=== PATIENT | female | born 1975 | race Caucasian/White ===

== ENCOUNTER 2016-11-03 22:06 | Inpatient (IN) | payer MEDICAID, OTHER ==
[~2016-11-03] VITALS: Ht 162.6 cm; Wt 59.1 kg
[2016-11-03] MEDS ORDERED: SOD CHLORIDE 0.9% 1,000 ML IV STA (22:16)
[2016-11-03 22:54] LABS: BASOPHIL # 0.1 10^3/ul (0.0-0.1); BASOPHILS % 0.4 % (0.0-2.0); EOSINOPHILS # 0.6 10^3/ul (0.0-0.5); EOSINOPHILS % 4.7 % (0.0-7.0); HEMOGLOBIN 11.8 g/dl (12.0-16.0); LYMPHOCYTES # 2.6 10^3/ul (0.8-2.9); LYMPHOCYTES % 21.6 % (15.0-51.0); MEAN CORPUSCULAR HEMOGLOBIN 28.7 pg (29.0-33.0); MEAN CORPUSCULAR HGB CONC 33.6 g/dl (32.0-37.0); MEAN CORPUSCULAR VOLUME 85.3 fl (82.0-101.0); MEAN PLATELET VOLUME 9.3 fl (7.4-10.4); MONOCYTE # 0.7 10^3/ul (0.3-0.9); MONOCYTES % 5.6 % (0.0-11.0); NEUTROPHIL # 8.2 10^3/ul (1.6-7.5); NEUTROPHILS % 67.7 % (39.0-77.0); PLATELET COUNT 240 10^3/UL (140-440); RED CELL DISTRIBUTION WIDTH 13.7 % (11.5-14.5); UNCORRECTED WBC 12.2 10^3/ul (4.8-10.8); WHITE BLOOD COUNT 12.2 10^3/ul (4.8-10.8)
[2016-11-03 22:56] LABS: CONDITION 1
[2016-11-03] MEDS ORDERED: PRENAT PO (23:11)
--- NOTE | 2016-11-03 23:55 | RADRPT ---
PROCEDURE: Obstetrical ultrasound. CLINICAL INDICATION: Vaginal bleeding. TECHNIQUE: Multiple sonographic images of the pelvis were obtained utilizing a transabdominal and endovaginal technique. The images were reviewed on a PACS workstation. COMPARISON: None. FINDINGS: The uterus is visualized and measures 9.8 x 5.9 x 6.2 cm. No abnormal uterine mass is identified. T he endometrial echo complex is thickened and heterogeneous measuring 2.4 cm with abnormal echogenici ties suggestive of retained products. Blood clot is also seen within the endocervical canal. No in trauterine is identified. There is no evidence for free fluid. Bilateral ovaries are not visualized. No adnexal masses are i dentified. IMPRESSION: Thickened and heterogeneous endometrium with abnormal echogenicities suggestive of retained products . Blood clot is also seen within the endocervical canal. No intrauterine identified. Bilateral ovaries not visualized. .Neal De Guzman MD, Date Time Electronically viewed and signed by .Neal De Guzman MD, MD on 11/03/2016 23:55 .T/
[2016-11-04] VITALS (10 sets, daily range): BP systolic 96–116; BP diastolic 46–59; PULSE 82–95; RESP 14–20; Ht 162.6 cm; Wt 59.1 kg
--- NOTE | 2016-11-04 02:15 | ERA ---
ER Documentation Chief Complaint Date/Time DATE: 11/04/16 TIME: 02:15 Chief Complaint HEAVY VAG BLEED, HAD A MISCARRIAGE SINCE YESTERDAY 8 WEEKS HPI This is a 41-year-old female comes in with heavy vaginal bleeding. Patient had a miscarriage yesterday and she is 8 weeks . She complained of vaginal bleeding today along with abdominal cramping. ROS All systems reviewed and are negative except as per history of present illness. Medications Home Meds Reported Medications Multivit/Min/Fol Ac/Iron/Pren* ( S*) 1 Tab Tab, 1 TAB PO DAILY, TAB 11/03/16 Allergies Allergies: Coded Allergies: No Known Allergy (Unverified , 11/03/16) PMhx/Soc Medical and Surgical Hx: pt denies Medical Hx, pt denies Surgical Hx Hx Alcohol Use: No Hx Substance Use: No Hx Tobacco Use: No Smoking Status: Never smoker Physical Exam Vitals Vital Signs Date Time Temp Pulse Resp B/P Pulse Ox O2 Delivery O2 Flow Rate FiO2 11/04/16 01:00 89 19 91/57 100 Room Air 11/03/16 22:15 97.7 90 20 110/56 99 Physical Exam Const: [] Head: Atraumatic Eyes: Normal Conjunctiva ENT: Normal External Ears, Nose and Mouth. Neck: Full range of motion..~ No meningismus. Resp: Clear to auscultation bilaterally Cardio: Regular rate and rhythm, no murmurs Abd: Soft, non tender, non distended. Normal bowel sounds Skin: No petechiae or rashes Back: No midline or flank tenderness Ext: No cyanosis, or edema Neur: Awake and alert Psych: Normal Mood and Affect Result Diagram: 11/03/162234 Results 24 hrs Laboratory Tests Test 11/03/16 22:35 Basophils # 0.110^3/ul Basophils % 0.4% Beta HCG, Quantitative 2594.7mIU/ml Blood Morphology Comment Eosinophils # 0.610^3/ul Eosinophils % 4.7% Hematocrit 35.0% Hemoglobin 11.8g/dl Lymphocytes # 2.610^3/ul Lymphocytes % 21.6% Mean Corpuscular Hemoglobin 28.7pg Mean Corpuscular Hemoglobin Concent 33.6g/dl Mean Corpuscular Volume 85.3fl Mean Platelet Volume 9.3fl Monocytes # 0.710^3/ul Monocytes % 5.6% Neutrophils # 8.210^3/ul Neutrophils % 67.7% Nucleated Red Blood Cells # 0.010^3/ul Nucleated Red Blood Cells % 0.0/100WBC Platelet Count 97769^3/UL Red Blood Count 4.1010^6/ul Red Cell Distribution Width 13.7% White Blood Count 12.210^3/ul Current Medications Medications (Trade) Dose Ordered Sig/Pee Route PRN Reason Start Time Stop Time Status Last Admin Dose Admin Sodium Chloride (NS) 1,000 ml @ 1,000 mls/hr Q1H STAT IV 11/03/16 22:16 11/03/16 23:15 DC 11/03/16 22:36 Procedures/MDM Medical decision-makin-year-old female retained products of conception. Labors on-call was called and came and evaluated the patient in the ER. Patient will be taken to the OR for D&C. Departure Diagnosis: Primary Impression: Retained products of conception Condition: Stable NOMI WILEY Nov 04, 2016 02:15
[2016-11-04] MEDS ORDERED: LABETALOL HCL 20MG INJ IV PRN (03:30)
[2016-11-04] MEDS ORDERED: MIDAZOLAM 1 MG/ML 2 ML INJ IV PRN (03:30)
[2016-11-04] MEDS ORDERED: ONDANSETRON 4 MG INJ IV PRN ×2 (03:30→04:30)
[2016-11-04] MEDS ORDERED: HYDROmorphONE (0.2 MG/ML) 10ML SYG IV PRN ×3 (03:30)
[2016-11-04] MEDS ORDERED: hydrALAzine 20 MG INJ IV PRN (03:30)
[2016-11-04] MEDS ORDERED: EPHEDrine SULFATE 50 MG/5 ML SYG IV PRN (03:30)
[2016-11-04] MEDS ORDERED: FENTAnyl 50 MCG/ML VIAL IV PRN ×3 (03:30)
[2016-11-04] MEDS ORDERED: MEPERIDINE 25 MG INJ IV PRN (03:30)
[2016-11-04] MEDS ORDERED: PROPOFOL 20 ML ONE (03:45)
[2016-11-04] MEDS ORDERED: FENTAnyl 50 MCG/ML VIAL ONE (03:46)
[2016-11-04] MEDS ORDERED: LIDOCAINE 2% (SDV) 5 ML INJ ONE (03:46)
[2016-11-04] MEDS ORDERED: CEFAZOLIN 1 GM INJ ONE (03:57)
[2016-11-04] MEDS ORDERED: DEXAMETHASONE 4 MG/ML 1 ML INJ ONE (03:59)
[2016-11-04] MEDS ORDERED: KETOROLAC 30 MG INJ ONE (04:01)
[2016-11-04] MEDS ORDERED: ONDANSETRON 4 MG INJ ONE (04:02)
[2016-11-04] MEDS ORDERED: METHYLERGONOVINE 0.2 MG INJ ONE (04:03)
[2016-11-04] MEDS ORDERED: IBUPROFEN 600 MG TAB PO PRN (04:30)
--- NOTE | 2016-11-04 05:47 | CONS ---
DATE OF ADMISSION: 11/04/2016 DATE OF CONSULTATION: 11/04/[address] Lees, Thank you very much for allowing me to participate in the care of your patient, Ms Taryn Lainez. CHIEF COMPLAINT: Heavy vaginal bleeding. HISTORY OF PRESENT ILLNESS: Taryn Lainez is a 41-year-old 2, para 1-0-0- 1 with single intrauterine at 8 weeks by LMP complaining of vaginal bleeding since 2 days ago which gradually got worse. She denies nausea, vomiting, shortness of breath, chest pain, headache, or blurry vision. PAST MEDICAL HISTORY: Negative. PAST SURGICAL HISTORY: None. OBSTETRIC HISTORY: Gravid 2, para 1-0-0-1 with previous vaginal delivery. FAMILY HISTORY: Negative. She denies breast, uterine, ovarian, or colon cancer in her family. SOCIAL HISTORY: She is single, living with father of baby. He is father of first child too. She denies tobacco, alcohol, or drug use. ALLERGIES: NO KNOWN DRUG ALLERGIES. MEDICATIONS: vitamins. PHYSICAL EXAMINATION: VITAL SIGNS: Blood pressure 110/68, pulse rate 80/minute, respiratory rate 18/ minute, O2 saturation 98%, temperature 98.9. GENERAL: Comfortable. No acute distress. Appropriate mood and affect. HEART: Regular rhythm and rate. No murmur. LUNGS: Clear to auscultation bilaterally. ABDOMEN: Soft, nontender. FLANK: No CVA tenderness bilaterally. EXTREMITIES: No edema. Varicose veins thigh with calf tenderness bilaterally. PELVIC: External genitalia: Normal. There is blood all over external genitalia. Vagina: There is moderate to severe vaginal bleeding. Cervix: Open , and some of the tissue is seen on cervical os. Not able to take the tissue by ring forceps. Uterus: 8 weeks, mobile, nontender. Adnexa: No palpable mass bilaterally. IMAGING DATA: Ultrasound performed which revealed retained products of conception. LABORATORY DATA: CBC and blood type and screen performed. ASSESSMENT AND PLAN: A 41-year-old 2, para 1-0-0-1 with incomplete . Physical examination, labs, and ultrasound discussed in detail with patient and father of baby. Both expressed understanding. The management with risks, benefits, and alternatives discussed with the patient and the father of baby. They expressed understanding. Management including but not limited to the medical treatment with Cytotec take and suction curettage discussed. They would like to do surgery. Risks including but not limited to bleeding, infection, injury to other organs if uterine perforation happens discussed with patient. She will transfer to operating room for suction curettage. Dictated By: EUSEBIO MAR/LILIANA Conf#: [id number] DID#: [id number] MTDD
[2016-11-04 10:47] LABS: HEMOGLOBIN 9.1 g/dl (12.0-16.0); LYMPHOCYTES # 0.7 10^3/ul (0.8-2.9); LYMPHOCYTES % 6.8 % (15.0-51.0); MEAN CORPUSCULAR HEMOGLOBIN 28.6 pg (29.0-33.0); MEAN CORPUSCULAR HGB CONC 33.5 g/dl (32.0-37.0); MEAN CORPUSCULAR VOLUME 85.3 fl (82.0-101.0); MEAN PLATELET VOLUME 9.5 fl (7.4-10.4); MONOCYTES % 0.3 % (0.0-11.0); NEUTROPHIL # 9.8 10^3/ul (1.6-7.5); NEUTROPHILS % 92.9 % (39.0-77.0); PLATELET COUNT 191 10^3/UL (140-440); RED BLOOD COUNT 3.17 10^6/ul (4.20-5.40); RED CELL DISTRIBUTION WIDTH 13.8 % (11.5-14.5); UNCORRECTED WBC 10.6 10^3/ul (4.8-10.8); WHITE BLOOD COUNT 10.6 10^3/ul (4.8-10.8)
[2016-11-04 10:49] LABS: CONDITION 1; LH ANALYZER COMMENTS 1
--- NOTE | 2016-11-11 07:16 | OPR ---
DATE OF OPERATION: 11/04/2016 SURGEON: Juanito Bronson MD CALL PERSON: None. ANESTHESIA: General endotracheal anesthesia. PREOPERATIVE DIAGNOSIS: Incomplete . POSTOPERATIVE DIAGNOSIS: Per pathology. PROCEDURE PERFORMED: Dilation and suction curettage. COMPLICATIONS: None. CONDITION: Stable. SPECIMEN: Products of conception. BLOOD LOSS: 100 mL. URINE OUTPUT: 150 mL, clear. INDICATION: A 41-year-old 2, para 1-0-0-1 with a single intrauterine at 8 weeks b y LMP with vaginal bleeding, clot passing, and so just put it with incomplete . Treatment o ptions including expectant management, medical treatment with Cytotec and dilation and suction curet tage discussed with the patient and her partner. Both expressed understanding. The patient would l megan to have dilation and suction curettage. Risk of surgery including, but not limited to, bleeding , infection, uterine rupture, injury to other organ if uterine perforation occurs including bowel an d bladder injury, blood transfusion, blood transfusion related infection, risk of anesthesia, risk o f scar formation discussed in detail with the patient and her partner. Both expressed understanding and would like to proceed with procedure. FINDINGS: Examination under anesthesia: External genitalia within normal limits. Vagina: Moderat e bleeding with passing some tissue. Cervix: Fingertip open. Uterus 8 weeks. Adnexa: No palpabl e mass bilaterally. PROCEDURE IN DETAIL: The patient was identified and the procedure verified. She was given general anesthesia without difficulty and placed in modified dorsal lithotomy position. DESCRIPTION OF PROCEDURE: The patient was examined under general anesthesia with the above findings . The patient was then prepped and draped in normal sterile fashion. The bladder was drained by in sertion of straight catheter. Then, weighted speculum was used to visualize the cervix which was gr asped on the anterior lip with a single tooth tenaculum. The endocervix dilated to a #10, a 10 suct ion curette was introduced into the uterine cavity. Suction curettage was performed in 360 degree f ashion until no further tissue was obtained. There was approximately 100 mL of bleeding. Then a sh anirudh curette was gently introduced into uterine cavity until gritty texture was felt in all 4 quadran ts. The suction curettage was introduced again to remove the remaining clot and debris. No further tissue was obtained. There was about 100 grams of tissue which was sent to pathology. Tenaculum a nd speculum were removed. There no bleeding from the tenaculum site. The patient tolerated the pro cedure well. She extubated in the operating room and transferred to the recovery room in stable con dition. Dictated By: JUANITO MAR/LILIANA Conf#: [id number] DID#: [id number]
== END 2016-11-04 15:40 | disposition home or self-care (01) | DRG 770 ==
LOC: E/R 22:06 → SUR 11-04 03:16 → SDS 11-04 03:16 → SUR 11-04 05:10 → MS2 11-04 05:11
PROVIDERS: ADMIT Obstetrics & Gynecology; ATTEND Obstetrics & Gynecology
PROC: 10D17ZZ Extraction of Products of Conception, Retained, Via Natural or Artificial Opening (ICD-10-PCS; principal; 2016-11-04 03:30)
DX: O03.4 Incomplete spontaneous abortion without complication (principal)
CPT/HCPCS: 36415; 76801; 76817; 84702; 85025; 86900; 86901; 88305; J0690; J1100; J1885; J2210; J2405; J3010; J7030

== ENCOUNTER 2018-03-24 09:00 | Inpatient (IN) | END 2018-03-27 16:00 | disposition home or self-care (01) | DRG 766 ==

== ENCOUNTER 2019-02-21 10:00 | Emergency (ER) | payer OTHER ==
[~2019-02-21] VITALS: Ht 157.5 cm; Wt 65.1 kg
[~2019-02-21 10:00] MED LIST: PRENAT PO
[2019-02-21 10:07] VITALS: BP 117/63; PULSE 82; RESP 18; Ht 157.5 cm; Wt 65.1 kg
[2019-02-21] MEDS ORDERED: ONDANSETRON 4 MG INJ IV STA (12:01)
[2019-02-21] MEDS ORDERED: HYDROmorphONE 1 MG/ML SYG IV STA (12:01)
[2019-02-21] MEDS ORDERED: ACET-141 PO (14:15)
--- NOTE | 2019-02-21 15:36 | ERD ---
ER Documentation Chief Complaint Chief Complaint UPPER ABDOMINAL PAIN AND VOMITING THIS MORNING HPI This is a 43-year-old female complains of right upper quadrant pain described as crampy with radiation to the right back. Is also some right shoulder blade pain. She has nausea vomiting today no shortness of breath or chest pain. No history of gallstones or history of gastritis. Pain was onset this morning and is constant and moderate in nature. No diarrhea no blood in her vomit ROS All systems reviewed and are negative except as per history of present illness. Medications Home Meds Active Scripts Hydrocodone/Acetaminophen (Bledsoe 10-325 Tablet) 1 Each Tablet, 1 TAB PO Q6H PRN for PAIN, #20 TAB Prov:LUBA BORJASTBEVERLEYS Rosalia. DO 02/21/19 Ondansetron (Ondansetron Odt) 4 Mg Tab.rapdis, 4 MG PO Q6H PRN for NAUSEA AND/OR VOMITING, #10 TAB Prov:CORBIN BORJAS A. DO 02/21/19 Dicyclomine HCl (Dicyclomine HCl) 10 Mg Capsule, 20 MG PO TID PRN for ABDOMINAL CRAMPING, #20 CAP Prov:LEKKOS,APOSTOLOS A. DO 02/21/19 Reported Medications Acetaminophen* (Acetaminophen*) 500 MG Extra Strength Tablet, 1000 MG PO Q6H PRN for PAIN AND OR ELEVATED TEMP, TAB 02/21/19 Discontinued Reported Medications Multivit/Min/Fol Ac/Iron/Pren* ( S*) 1 Tab Tab, 1 TAB PO DAILY, TAB 11/03/16 Allergies Allergies: Coded Allergies: No Known Allergy (Unverified , 02/21/19) PMhx/Soc History of Surgery: Yes (appendectomy) Anesthesia Reaction: No Hx Neurological Disorder: No Hx Respiratory Disorders: No Hx Cardiac Disorders: No Hx Psychiatric Problems: No Hx Miscellaneous Medical Probl: No Hx Alcohol Use: No Hx Substance Use: No Hx Tobacco Use: No Smoking Status: Never smoker FmHx Family History: No coronary disease Physical Exam Vitals Vital Signs Date Temp Pulse Resp B/P (MAP) Pulse Ox O2 O2 Flow FiO2 Time Delivery Rate 02/21/19 98.3 82 18 117/63 100 10:07 (81) Physical Exam Const: Well-developed, well-nourished Head: Atraumatic, normocephalic Eyes: Normal Conjunctiva, PERRLA, EOMI, normal sclera, no nystagmus ENT: Normal External Ears, Nose and Mouth, moist mucus membranes. Neck: Full range of motion. No meningismus, no lymphadenopathy. Resp: Clear to auscultation bilaterally, no wheezing, rhonchi, rales Cardio: Regular rate and rhythm, no murmurs, S1 S2 present Abd: Soft, moderate right upper quadrant tenderness, non distended. Normal bowel sounds, no guarding or rebound, no pulsitile abdominal masses or bruits Skin: No petechiae or rashes, no ecchymosis , no maculopapular rash Back: No midline or flank tenderness Ext: No cyanosis, or edema, FROM x 4, normal inspection, neurovascularly intact x 4 Neur: Awake and alert, STR 5/5 x 4, sensation intact x 4, no focal findings, cerebellum intact Psych: Normal Mood and Affect Result Diagram: 02/21/19 1225 02/21/19 1225 Results 24 hrs Laboratory Tests Test 02/21/19 12:25 White Blood Count 16.0 10^3/ul Red Blood Count 4.63 10^6/ul Hemoglobin 12.0 g/dl Hematocrit 37.9 % Mean Corpuscular Volume 81.9 fl Mean Corpuscular Hemoglobin 25.9 pg Mean Corpuscular Hemoglobin Concent 31.7 g/dl Red Cell Distribution Width 13.3 % Platelet Count 288 10^3/UL Mean Platelet Volume 11.8 fl Immature Granulocytes % 0.400 % Neutrophils % 82.4 % Lymphocytes % 12.0 % Monocytes % 3.6 % Eosinophils % 1.2 % Basophils % 0.4 % Nucleated Red Blood Cells % 0.0 /100WBC Immature Granulocytes # 0.070 10^3/ul Neutrophils # 13.2 10^3/ul Lymphocytes # 1.9 10^3/ul Monocytes # 0.6 10^3/ul Eosinophils # 0.2 10^3/ul Basophils # 0.1 10^3/ul Nucleated Red Blood Cells # 0.0 10^3/ul Sodium Level 140 mmol/L Potassium Level 3.8 mmol/L Chloride Level 106 mmol/L Carbon Dioxide Level 23 mmol/L Anion Gap 11 Blood Urea Nitrogen 16 mg/dl Creatinine 0.38 mg/dl Est Glomerular Filtrat Rate mL/min > 60 mL/min Glucose Level 99 mg/dl Calcium Level 9.8 mg/dl Total Bilirubin 0.6 mg/dl Direct Bilirubin 0.00 mg/dl Indirect Bilirubin 0.6 mg/dl Aspartate Amino Transf (AST/SGOT) 23 IU/L Alanine Aminotransferase (ALT/SGPT) 30 IU/L Alkaline Phosphatase 108 IU/L Total Protein 8.0 g/dl Albumin 4.6 g/dl Globulin 3.40 g/dl Albumin/Globulin Ratio 1.35 Lipase 60 U/L Current Medications Medications Dose Sig/Pee Start Time Status Last (Trade) Ordered Route PRN Stop Time Admin Dose Reason Admin 1 mg ONCE STAT 02/21/19 DC 02/21/19 Hydromorphone IV 12:01 12:22 HCl 02/21/19 12:02 (Dilaudid) Ondansetron 4 mg ONCE STAT 02/21/19 DC 02/21/19 HCl (Zofran IV 12:01 12:22 Inj) 02/21/19 12:02 Procedures/[place] [id number] Radiology Main Line: [phone] DIAGNOSTIC IMAGING REPORT Patient: MARY MOORE : 1975 Age: 43 Sex: F MR #: [id number] [facility] #: [id number] DOS: 02/21/19 1201 Ordering MD: JESSICA BORJA DO Location: E/R Room/Bed: PROCEDURE: US Abdomen. CLINICAL INDICATION: abdominal pain TECHNIQUE: Multiple real-time images were acquired of the patient's right upper quadrant abdomen and retroperitoneum utilizing a high resolution transducer. COMPARISON: None FINDINGS: The liver demonstrates increased echogenicity. The liver is enlarged in size and no focal solid lesions are seen. The liver measures 19.1 cm in length. The portal vein is patent with normal direction of flow. No intrahepatic biliary dilatation is seen. The gallbladder is moderately distended. Multiple calcified gallstones are identified within the gallbladder. There is also a small amount of sludge. There is no pericholecystic fluid or gallbladder wall thickening. The common bile duct measures 3.5 mm in maximal dimension. The visualized portions of the pancreas are unremarkable. The tail of the pancreas is not seen. No free fluid is identified. The right kidney is normal in size, and demonstrate normal echogenicity and cortical thickness. The right kidney measures 11.9 cm in long dimension. There is no evidence of hydronephrosis. There are no kidney stones. RPTAT: AA IMPRESSION: Moderately distended gallbladder with multiple small calcified stones and a small amount of sludge. Mild hepatomegaly with diffuse fatty infiltration of the liver. .Elieser Willoughby MD, MD Date Time Electronically viewed and signed by .Elieser Willoughby MD, on 02/21/2019 15:19 .S/ CC: JESSICA BORJA DO [id number] Patient's pain is much improved. She has some gallstones on her CT scan accounting for pain. She has elevated white blood count due to pain and demargination. No elevated liver function tests. Will discharge home with Tonia Velasquez with follow-up with general surgery for gallbladder removal later Departure Diagnosis: Primary Impression: Gallstones Condition: Stable JESSICA BORJA DO February 21, 2019 15:36
[2019-02-21] MEDS ORDERED: DICY10CA40 PO (15:39)
[2019-02-21] MEDS ORDERED: ONDA4TAB14 PO (15:39)
[2019-02-21] MEDS ORDERED: HYDR-3980 PO (15:39)
== END 2019-02-21 16:42 | disposition home or self-care (01) ==
LOC: E/R 10:00
DX: K80.20 Calculus of gallbladder without cholecystitis without obstruction (principal)
CPT/HCPCS: 36415; 76705; 80053; 83690; 85025; 96374; 96375; J1170; J2405; Z7502